=== PATIENT | female | born 1985 | race Caucasian/White ===

== ENCOUNTER 2017-04-26 10:28 | Emergency (ER) | payer OTHER ==
--- NOTE | 2017-04-26 11:16 | ED Physician Chart ---
ED Chief Complaint/HPI - Patient Information Date Seen:: 04/26/17 Time Seen:: 11:00 Chief Complaint:: chills and fever History of Present Illness:: Patient developed chills and oral temperature up to 99.2 last night. Patient has had a cough with clear sputum for last 2 weeks. No vomiting or diarrhea. Patient has had nonpleuritic left flank pain for last 2-3 days. Did not receive influenza vaccination this season. Patient is 5 weeks . Allergies:: Allergies Allergy/AdvReac Type Severity Reaction Status Date / Time doxycycline AdvReac Verified 04/26/17 10:37 Penicillins [PCN] AdvReac Verified 04/26/17 10:37 Vitals:: Vital Signs - 8 hr 04/26/17 10:37 Temp 100.1 F HR 103 RR 16 BP 113/71 O2 Sat % 98 Historian:: Patient Review:: Nurse's Note Reviewed ED Review of Systems - Review of Systems General/Constitutional: Fever, Chills Skin: No skin lesions Head: No headache Eyes: No loss of vision ENT: No earache, Sore throat Neck: No neck pain Cardio Vascular: No chest pain, No orthopnea Pulmonary: Cough, Sputum GI: No nausea, No vomiting, No diarrhea G/U: No dysuria Musculoskeletal: No bone or joint pain, No back pain, No muscle pain Endocrine: No polyuria, No polydipsia Psychiatric: No prior psych history, No suicidal ideation Hematopoietic: No bruising, No lymphadenopathy Allergic/Immuno: No urticaria Neurological: No syncope, No focal symptoms Family Medical History - Family Member Father Hx Family Cancer: No Hx Family Coronary Artery Disease: No Hx Family Congestive Heart Failure: No Hx Family Hypertension: No Hx Family Stroke: No Hx Family Seizures: No Hx Family Dementia: No Hx Family AIDS: No Hx Family COPD: No Hx Family Hepatitis: No Hx Family Tuberculosis: No ED Physical Exam - Physical Examination General/Constitutional: Well-developed, well-nourished, Alert, No distress Head: Atraumatic Eyes: Lids, conjuctiva normal, PERRL Skin: Nl inspection, No rash, No skin lesions, No ecchymosis, Well hydrated, No lymphadenopathy ENMT: External ears, nose nl, TM canals nl, Nasal exam nl, Lips, teeth, gums nl Neck: No nuchal rigidity Respiratory: Nl effort/Exclusion Other Respiratory comments:: 1/4 right basilar rales; otherwise chest is clear Cardio Vascular: RRR GI: No tenderness/rebounding/guarding, No organomegaly, No hernia, Normal BS's Extremities: Normal digits & nails Neuro/Psych: No focal deficits Other:: Left flank tenderness ED Labs/Radiology/EKG Results - Lab Results Results: Laboratory Results - last 24 hr 04/26/17 04/26/17 04/26/17 10:50 10:50 11:25 Urine Source CLEAN C Urine Color YELLOW Urine Clarity CLEAR Urine pH 6.5 Ur Specific [place] <= 1.005 Urine Protein NEGATIVE Urine Glucose (UA) NEGATIVE Urine Ketones NEGATIVE Urine Blood NEGATIVE Urine Nitrate NEGATIVE Urine Bilirubin NEGATIVE Urine Urobilinogen 0.2 Ur Leukocyte Esterase NEGATIVE Urine RBC 0-2 Urine WBC 2-5 Ur Epithelial Cells MODERATE Urine Bacteria FEW Urine Test POSITIVE Influenza A (Rapid) Cancelled NEG FOR INF A Influenza B (Rapid) Cancelled NEG FOR INF B ED Assessment - Assessment General Assessment: Patient has 1 out of 4 rales right base so she may have pneumonia so will be prescribed a Z-Rajeev. Patient instructed to take Tylenol for pain and fever. ED Septic Shock - . Is Septic Shock (SBP<90, OR Lactate>4 mmol\L) present?: No - <6hrs of presentation: Vital Signs: Vital Signs - 8 hr 04/26/17 10:37 Temp 100.1 F HR 103 RR 16 BP 113/71 O2 Sat % 98 ED Reassessment (Disposition) - Reassessment Reassessment:: At 12:15 patient complain of myalgia and will be given Toradol 30 mg intramuscularly Reassessment Condition:: Unchanged - Diagnosis Diagnosis:: Acute viral syndrome; bronchitis and pneumonia - Aftercare/Follow up Instructions Aftercare/Follow-Up Instructions:: Refer to Discharge Instructions Medication Prescribed:: Z-Rajeev to take per directions - Patient Disposition Discharge/Transfer:: Home Condition at Disposition:: Stable, Unchanged
[2017-04-26 11:23] LABS: URINE MICROSCOPIC INDICATED? YES; URINE SOURCE CLEAN C
[2017-04-26 11:49] LABS: URINE BILIRUBIN NEGATIVE (NEGATIVE); URINE BLOOD NEGATIVE (NEGATIVE); URINE GLUCOSE (UA) NEGATIVE (NEGATIVE); URINE KETONE NEGATIVE (NEGATIVE); URINE LEUKOCYTE ESTERASE NEGATIVE (NEGATIVE); URINE NITRATE NEGATIVE (NEGATIVE); URINE PH 6.5 (4.6 - 8.0); URINE PROTEIN NEGATIVE (NEGATIVE); URINE UROBILINOGEN 0.2 E.U./dL (0.2 - 1.0)
[2017-04-26 11:52] LABS: URINE CLARITY CLEAR (CLEAR); URINE COLOR YELLOW
[2017-04-26 11:56] LABS: URINE BACTERIA FEW /hpf (NONE SEEN); URINE EPITHELIAL CELLS MODERATE /lpf (FEW); URINE RBC 0-2 /hpf (0-5)
[2017-04-26 11:59] LABS: INF A SCREEN NEG FOR INF A; INF B SCREEN NEG FOR INF B
== END 2017-04-26 12:42 | disposition home or self-care (01) ==
LOC: ER 10:28
DX: J40 Bronchitis, not specified as acute or chronic (principal); B34.9 Viral infection, unspecified; J18.9 Pneumonia, unspecified organism; Z88.0 Allergy status to penicillin; Z88.1 Allergy status to other antibiotic agents
CPT/HCPCS: 81001-TC; 81025-TC; 87804-TC; Z7502; Z7610